=== PATIENT | male | born 1955 | race Caucasian/White ===

== ENCOUNTER 2021-02-16 16:02 | Inpatient (IN) | payer MEDICARE ==
[2021-02-16] MEDS ORDERED: Lorazepam 2 MG/ML VIAL ONE (17:45)
[2021-02-16 17:53] LABS: #Monocytes 0.5 10x3/uL (0.0-1.1); #Neutrophils 1.7 10x3/uL (1.5-8.4); %Basophils 1.2 % (0.0-2.0); %Eosinophils 0.6 % (0.0-6.0); %Lymphocytes 33.2 % (18.0-47.0); %Monocytes 14.1 % (0.0-10.0); %Neutrophils 50.6 % (40.0-75.0); Hemoglobin 14.6 g/dL (13.5-17.5); Mean Corpuscular HGB CONC 33.8 g/dL (32.0-36.0); Mean Corpuscular Hemoglobin 33.3 pg (27.0-33.0); Mean Corpuscular Volume 98.6 fl (81.2-95.1); Mean Platelet Volume 9.7 fl (7.4-10.4); Platelet Count 204 10x3/uL (150-450); RBC Distribution Width 14.6 % (11.5-14.5); Red Blood Cell (RBC) Count 4.38 10x6/uL (4.32-5.72); White Blood Cell (WBC) Count 3.4 10x3/uL (3.5-10.5)
[2021-02-16 18:08] LABS: ALT (SGPT) 49 U/L (8-55); AST (SGOT) 81 U/L (5-34); Albumin 4.2 g/dL (3.4-4.8); Alcohol 204 mg/dL (Less than 10); Alkaline Phosphatase 67 U/L (40-110); Anion Gap 22 mmol/L (10-20); BUN (Urea Nitrogen) 20 mg/dL (8.4-25.7); Bilirubin, Total 0.5 mg/dL (0.2-1.2); Calc. Creatinine Clearance 0 mL/min (70-130); Calcium 9.2 mg/dL (7.8-10.44); Carbon Dioxide 17 mmol/L (23-31); Chloride 102 mmol/L (98-107); Globulin 2.9 g/dL (2.4-3.5); Glucose 282 mg/dL (80-115); Potassium 3.7 mmol/L (3.5-5.1); Protein, Total 7.1 g/dL (5.8-8.1); Sodium 137 mmol/L (136-145)
[2021-02-16] MEDS ORDERED: Thiamine HCl 200 MG/2 ML VIAL SLOW IVP SCH (20:00)
[2021-02-16] MEDS ORDERED: Folic Acid 1 MG, Multivitamins, Adult 10 ML in Dextrose 5 %-0.45 % NaCl 1,000 ML IV SCH (20:00)
[2021-02-16] MEDS ORDERED: Ketorolac Tromethamine 30 MG/ML VIAL ONE (22:47)
[2021-02-17] MEDS ORDERED: Lorazepam 1 MG TAB PO PRN (01:19)
[2021-02-17] MEDS ORDERED: Ondansetron ODT 4 MG TAB PO PRN (01:19)
[2021-02-17] MEDS ORDERED: Lorazepam 2 MG/ML VIAL IM PRN (01:19)
[2021-02-17] MEDS ORDERED: Dextrose 5% in Water 1,000 ML IV PRN (01:30)
[2021-02-17] MEDS ORDERED: Electrolyte Replacement Protocol 1 EACH FS SCH (01:30)
[2021-02-17] MEDS ORDERED: Dextrose 50% Abboject 50 ML SYRINGE SLOW IVP PRN (01:30)
[2021-02-17] MEDS ORDERED: Thiamine HCl 200 MG/2 ML VIAL SLOW IVP SCH (01:30)
[2021-02-17] MEDS ORDERED: HumaLOG 300 UNITS/3 ML VIAL SC PRN (01:30)
[2021-02-17] MEDS ORDERED: NS 0.9% w/ 20 MEQ KCL 1,000 ML/1,000 ML BAG IV SCH (01:45)
[2021-02-17] MEDS ORDERED: Lorazepam 1 MG TAB ONE (02:20)
[2021-02-17 03:25] VITALS: BMI 21.2
[2021-02-17] MEDS: Lorazepam 1 MG TAB PO SCH ×5 (04:17→23:34)
[2021-02-17 04:37] LABS: #Eosinphils 0.1 10x3/uL (0.0-0.5); #Monocytes 0.4 10x3/uL (0.0-1.1); %Basophils 0.6 % (0.0-2.0); %Eosinophils 1.4 % (0.0-6.0); %Lymphocytes 27.7 % (18.0-47.0); %Monocytes 12.4 % (0.0-10.0); %Neutrophils 57.6 % (40.0-75.0); Hemoglobin 13.5 g/dL (13.5-17.5); Mean Corpuscular HGB CONC 34.4 g/dL (32.0-36.0); Mean Corpuscular Hemoglobin 33.6 pg (27.0-33.0); Mean Corpuscular Volume 97.8 fl (81.2-95.1); Mean Platelet Volume 9.4 fl (7.4-10.4); Platelet Count 157 10x3/uL (150-450); RBC Distribution Width 14.2 % (11.5-14.5); Red Blood Cell (RBC) Count 4.02 10x6/uL (4.32-5.72); White Blood Cell (WBC) Count 3.5 10x3/uL (3.5-10.5)
[2021-02-17 04:43] LABS: Prothrombin Time 10.8 sec (9.5-12.1)
[2021-02-17 04:44] LABS: Cardiac Risk 2.7 (Less than 4.5); Cholesterol 203 mg/dl (< 200 Desired); HDL Cholesterol 74 mg/dL (>60 Neg Risk); LDL Cholesterol, Calculated 118 mg/dL; Phosphorus 2.6 mg/dL (2.3-4.7); Triglycerides 53 mg/dL (Less than 150)
[2021-02-17 04:45] LABS: Anion Gap 12 mmol/L (10-20); BUN (Urea Nitrogen) 16 mg/dL (8.4-25.7); Calc. Creatinine Clearance 123 mL/min (70-130); Calcium 8.3 mg/dL (7.8-10.44); Carbon Dioxide 24 mmol/L (23-31); Chloride 102 mmol/L (98-107); Glucose 96 mg/dL (80-115); Magnesium 1.9 mg/dL (1.6-2.6); Potassium 3.4 mmol/L (3.5-5.1); Sodium 135 mmol/L (136-145)
[2021-02-17] MEDS: Nicotine 21 MG PATCH TD SCH ×2 (04:54→23:34)
[2021-02-17] MEDS: HYDROcodone/Acetaminophen 5/325 mg Tablet PO PRN ×2 (04:55→21:47)
[2021-02-17] MEDS ORDERED: Magnesium 2 GM/50 ML 2 GM in Premix Bag 1 BAG IVPB SCH (05:00)
[2021-02-17] MEDS ORDERED: Potassium Chloride 20 MEQ TAB PO SCH ×2 (05:00→07:15)
[2021-02-17 05:08] LABS: Syphilis Antibody Nonreactive (Nonreactive); Syphilis Antibody Index 0.06 S/CO (<1.00 Non-Reactive)
[2021-02-17] MEDS: Ondansetron PF 4 MG/2 ML Vial IVP PRN ×2 (08:25→13:25)
[2021-02-17 12:46] LABS: Hemoglobin A1c 5.1 % (4.0-6.0)
[2021-02-17] MEDS: NS 0.9% w/ 40 MEQ KCL 1,000 ML IV SCH ×3 (13:23→23:34)
[2021-02-17] MEDS: Enoxaparin Sodium 40 MG/0.4 ML SYRINGE SC SCH (13:23)
[2021-02-17] MEDS: Magnesium Oxide 400 MG TAB PO SCH (13:38)
[2021-02-17] MEDS: Gabapentin 300 MG CAP PO SCH ×3 (13:38→21:47)
[2021-02-17] MEDS: Multivit, Therapeutic 1 TAB PO SCH (13:38)
[2021-02-17] MEDS: Pantoprazole 40 MG VIAL IVP SCH (13:38)
[2021-02-17] MEDS: Folic Acid 1 MG TAB PO SCH ×3 (13:38→13:40)
[2021-02-17] MEDS: Finasteride 5 MG TAB PO SCH (13:39)
[2021-02-17] MEDS: Tamsulosin HCl 0.4 MG CAP PO SCH (13:39)
[2021-02-17] MEDS: Thiamine HCl 200 MG/2 ML VIAL SLOW IVP SCH (13:46)
[2021-02-17] MEDS: Rosuvastatin 10 MG TAB PO SCH (21:48)
[2021-02-18] MEDS ORDERED: Lorazepam 1 MG TAB PO PRN (01:19)
[2021-02-18 05:28] LABS: Magnesium 2.1 mg/dL (1.6-2.6)
[2021-02-18 05:51] LABS: HIV (1/2) Antibody/Antigen Non-Reactive (NonReactive); HIV 1/2 INDEX 0.05 S/CO (<1.00)
[2021-02-18] MEDS: HYDROcodone/Acetaminophen 5/325 mg Tablet PO PRN (05:52)
[2021-02-18 08:05] LABS: Amphetamine Not Detected (NotDetected); Barbiturates Screen Not Detected (NotDetected); Benzodiazepine Screen Detected (NotDetected); Cocaine Metabolite Screen Not Detected (NotDetected); Methadone Not Detected (NotDetected); Methamphetamine Not Detected (NotDetected); Opiate Screen Detected (NotDetected); Oxycodone Screen Not Detected (NotDetected); Phencyclidine (PCP) Not Detected (NotDetected); THC/Cannabinoid Screen Not Detected (NotDetected); Tricyclic Screen Not Detected (NotDetected)
[2021-02-18] MEDS: Magnesium Oxide 400 MG TAB PO SCH (09:30)
[2021-02-18] MEDS: Finasteride 5 MG TAB PO SCH (09:30)
[2021-02-18] MEDS: Enoxaparin Sodium 40 MG/0.4 ML SYRINGE SC SCH (09:30)
[2021-02-18] MEDS: Tamsulosin HCl 0.4 MG CAP PO SCH (09:30)
[2021-02-18] MEDS: Pantoprazole 40 MG VIAL IVP SCH (09:30)
[2021-02-18] MEDS: Gabapentin 300 MG CAP PO SCH ×3 (09:31→20:12)
[2021-02-18] MEDS: Lorazepam 1 MG TAB PO SCH ×3 (09:32→20:15)
[2021-02-18] MEDS: Multivit, Therapeutic 1 TAB PO SCH (09:32)
[2021-02-18] MEDS: Thiamine HCl 200 MG/2 ML VIAL SLOW IVP SCH (09:36)
[2021-02-18] MEDS: NS 0.9% w/ 40 MEQ KCL 1,000 ML IV SCH ×2 (17:12→20:12)
[2021-02-18] MEDS: Rosuvastatin 10 MG TAB PO SCH (20:12)
[2021-02-19] MEDS: Nicotine 21 MG PATCH TD SCH (00:37)
[2021-02-19] MEDS: Lorazepam 0.5 MG TAB PO SCH ×4 (00:37→22:23)
[2021-02-19] MEDS ORDERED: Lorazepam 1 MG TAB PO PRN (01:19)
[2021-02-19] MEDS: NS 0.9% w/ 40 MEQ KCL 1,000 ML IV SCH ×2 (06:34→15:30)
[2021-02-19] MEDS: Enoxaparin Sodium 40 MG/0.4 ML SYRINGE SC SCH (09:28)
[2021-02-19] MEDS: Multivit, Therapeutic 1 TAB PO SCH (09:29)
[2021-02-19] MEDS: Gabapentin 300 MG CAP PO SCH ×3 (09:30→22:23)
[2021-02-19] MEDS: Magnesium Oxide 400 MG TAB PO SCH (09:31)
[2021-02-19] MEDS: Tamsulosin HCl 0.4 MG CAP PO SCH (09:31)
[2021-02-19] MEDS: Finasteride 5 MG TAB PO SCH (09:32)
[2021-02-19] MEDS: Thiamine HCl 200 MG/2 ML VIAL SLOW IVP SCH (09:32)
[2021-02-19] MEDS: Folic Acid 1 MG TAB PO SCH (09:36)
[2021-02-19 14:59] LABS: SARS-CoV-2 NAA Rapid Test Not Detected (NotDetected)
[2021-02-19] MEDS: Rosuvastatin 10 MG TAB PO SCH (22:23)
[2021-02-20] MEDS: Nicotine 21 MG PATCH TD SCH (00:21)
[2021-02-20] MEDS ORDERED: Lorazepam 0.5 MG TAB PO PRN (01:19)
[2021-02-20] MEDS ORDERED: Thiamine 100 MG TAB PO SCH (01:30)
[2021-02-20] MEDS: NS 0.9% w/ 40 MEQ KCL 1,000 ML IV SCH (03:46)
[2021-02-20 04:18] LABS: Anion Gap 12 mmol/L (10-20); BUN (Urea Nitrogen) 8 mg/dL (8.4-25.7); Calc. Creatinine Clearance 125 mL/min (70-130); Calcium 8.8 mg/dL (7.8-10.44); Carbon Dioxide 23 mmol/L (23-31); Chloride 103 mmol/L (98-107); Glucose 100 mg/dL (80-115); Magnesium 1.9 mg/dL (1.6-2.6); Sodium 134 mmol/L (136-145)
[2021-02-20] MEDS: Folic Acid 1 MG TAB PO SCH (09:58)
[2021-02-20] MEDS: Finasteride 5 MG TAB PO SCH (09:58)
[2021-02-20] MEDS: Magnesium Oxide 400 MG TAB PO SCH (09:58)
[2021-02-20] MEDS: Tamsulosin HCl 0.4 MG CAP PO SCH (09:58)
[2021-02-20] MEDS: Gabapentin 300 MG CAP PO SCH ×3 (09:58→20:33)
[2021-02-20] MEDS: Multivit, Therapeutic 1 TAB PO SCH (09:58)
[2021-02-20] MEDS: Enoxaparin Sodium 40 MG/0.4 ML SYRINGE SC SCH (10:01)
[2021-02-20] MEDS ORDERED: Magnesium 2 GM/50 ML 2 GM in Premix Bag 1 BAG IVPB SCH ×2 (12:00→16:15)
[2021-02-20] MEDS: Rosuvastatin 10 MG TAB PO SCH (20:33)
[2021-02-20] MEDS ORDERED: Acetaminophen 325 MG TAB PO SCH (21:45)
[2021-02-21 00:08] VITALS: BP 118/65; TEMP 99.3
== END 2021-02-20 21:45 | DRG 897 ==
LOC: CSHERS 16:02 → CSHTELE 02-17 03:15 → OBSVTOIN 02-17 03:15
PROVIDERS: ADMIT Physician Assistant; ATTEND Hospitalist
DX: F10.239 Alcohol dependence with withdrawal, unspecified (principal); E87.2 Acidosis; F17.210 Nicotine dependence, cigarettes, uncomplicated; G89.29 Other chronic pain; N40.0 Benign prostatic hyperplasia without lower urinary tract symptoms; E78.5 Hyperlipidemia, unspecified; R73.9 Hyperglycemia, unspecified; I48.0 Paroxysmal atrial fibrillation; F32.A Depression, unspecified; I10 Essential (primary) hypertension; R07.89 Other chest pain; Z79.82 Long term (current) use of aspirin; Z79.899 Other long term (current) drug therapy
CPT/HCPCS: 36415; 36416; 70450; 71045; 80048; 80053; 80061; 80306; 80307; 83036; 83735; 84100; 84484; 85025; 85610; 85730; 86780; 87389; 93005; 93010; 94640; C9113; J1650; J1885; J2060; J2405; J3411; J3475; J3480; J7042; J7620; U0002